=== PATIENT | male | born 1995 | race Hispanic/Latino ===

== ENCOUNTER 2018-09-05 02:41 | Emergency (ER) | payer SELFPAY ==
[2018-09-05 03:06] LABS: #Basophils 0.1 thou/uL (0.0-0.2); #Eosinphils 0.1 thou/uL (0.0-0.7); #Lymphocytes 4.5 thou/uL (1.20-3.40); #Monocytes 0.7 thou/uL (0.11-0.59); #Neutrophils 3.6 thou/uL (1.40-6.50); %Basophils 1.1 % (0.0-1.0); %Eosinophils 1.3 % (0.0-10.0); %Lymphocytes 49.7 % (21.0-51.0); %Monocytes 7.6 % (0.0-10.0); %Neutrophils 40.3 % (42.0-75.0); Hemoglobin 16.3 g/dL (14.0-18.0); Mean Corpuscular HGB CONC 33.3 g/dL (32.0-36.0); Mean Corpuscular Hemoglobin 30.1 pg (27.0-31.0); Mean Corpuscular Volume 90.4 fL (78.0-98.0); Mean Platelet Volume 6.2 fL (7.4-10.4); Platelet Count 246 thou/uL (130-400); RBC Distribution Width 11.3 % (11.5-14.5); Red Blood Cell (RBC) Count 5.42 mill/uL (4.70-6.10)
[2018-09-05 03:26] LABS: ALT (SGPT) 25 U/L (8-55); AST (SGOT) 20 U/L (5-34); Alkaline Phosphatase 63 U/L (40-150); Anion Gap 14 mmol/L (10-20); BUN (Urea Nitrogen) 14 mg/dL (8.9-20.6); Bilirubin, Total 1.8 mg/dL (0.2-1.2); Calc. Creatinine Clearance 0 mL/min (70-130); Calcium 10.4 mg/dL (7.8-10.44); Carbon Dioxide 26 mmol/L (22-29); Chloride 102 mmol/L (98-107); Estimated GFR-MDRD 85; Globulin 3.1 g/dL (2.4-3.5); Glucose 98 mg/dL (70-105); Potassium 3.6 mmol/L (3.5-5.1); Protein, Total 8.1 g/dL (6.0-8.3); Sodium 138 mmol/L (136-145)
== END 2018-09-05 04:45 ==
LOC: ERS 02:41
DX: R55 Syncope and collapse (principal)
CPT/HCPCS: 36416; 80053; 85025; 93005; 94760; 96360

== ENCOUNTER 2018-09-07 16:07 | Emergency (ER) | payer SELFPAY ==
--- NOTE | 2018-09-07 18:04 | CT ---
CT brain. HISTORY: Weakness syncope. Noncontrast enhanced images brain obtained. The brain is unremarkable. No evidence of intracranial masses, hemorrhages, strokes or contusion seen . Ventricles are of normal size. The calvarium is unremarkable. IMPRESSION: Normal CT brain.
[2018-09-07 18:29] LABS: Acetaminophen Less than 6.0 mcg/mL (10.0-30.0); Alcohol Less than 10 mg/dL (Less than 10); Salicylate Less than 8.0 mg/dL (15.0-30.0)
[2018-09-07] MEDS ORDERED: Ondansetron ODT 4 MG TAB ONE (18:39)
== END 2018-09-07 18:56 | disposition home or self-care (01) ==
LOC: ERS 16:07
DX: R00.2 Palpitations (principal); R11.0 Nausea
CPT/HCPCS: 36415; 70450; 80307; 84443; 93005; Q0162